=== PATIENT | male | born 1950 | race Caucasian/White ===

== ENCOUNTER 2019-04-18 13:29 | Outpatient (CLI) | payer OTHER ==
[~2019-04-18 13:29] MED LIST: ACET-2165 PO; CLOZ100T32 PO; DEPAK250 PO; DOCU250C14 PO; METO25TA6 PO; PRO40 PO; REM15 PO
== END 2019-04-18 21:05 | disposition home or self-care (01) ==
LOC: SLB 13:29
PROVIDERS: ATTEND Psychiatry & Neurology Psychiatry
DX: Z00.00 Encounter for general adult medical examination without abnormal findings (principal)
CPT/HCPCS: 36415; 80164-TC

== ENCOUNTER 2019-09-08 14:15 | Emergency (ER) | payer OTHER, MEDICAID ==
[~2019-09-08] VITALS: Ht 167.6 cm; Wt 72.6 kg
--- NOTE | 2019-09-08 14:24 | NUR ---
Patient to ER bed 1 to gown for evaluation. Side rails up.
[2019-09-08 14:25] VITALS: BP_SYST 144
--- NOTE | 2019-09-08 14:30 | NUR ---
PT CAME TO ER FOR MED CLEARANCE. HE IS TO BE SENT TO [facility]. PT AO2, NO DISCOMFORT AT THIS TIME, RESTING IN [facility].
--- NOTE | 2019-09-08 14:40 | NUR ---
ER at bedside examining patient.
[2019-09-08 15:19] LABS: BASOPHILS % (AUTO) 0.8 % (0.0-2.0); EOSINOPHILS # (AUTO) 0.1 K/uL (0.0-0.4); EOSINOPHILS % (AUTO) 2.2 % (0.0-4.0); HEMOGLOBIN 13.6 g/dL (14.0-18.0); LYMPHOCYTES # (AUTO) 1.9 K/uL (1.0-5.5); LYMPHOCYTES % (AUTO) 31.5 % (20.5-51.5); MEAN CORPUSCULAR HEMOGLOBIN 30 pg (27-31); MEAN CORPUSCULAR HGB CONC 33 % (32-36); MEAN CORPUSCULAR VOLUME 89 fL (79.0-98.0); MONOCYTES # (AUTO) 0.7 K/uL (0.0-1.0); NEUTROPHILS # (AUTO) 3.4 K/uL (1.8-7.7); NEUTROPHILS % (AUTO) 54.5 % (40.0-70.0); PLATELET COUNT (AUTO) 341 K/uL (130-430); RED CELL DISTRIBUTION WIDTH 15.1 % (9.0-15.0); WHITE BLOOD COUNT (AUTO) 6.1 K/uL (4.8-10.8)
[2019-09-08 15:40] LABS: ANION GAP 7 (5-15); CALCIUM 9.2 mg/dL (8.4-11.0); CHLORIDE 99 mmol/L (98-107); CREATININE 0.77 mg/dL (0.55-1.30); GLUCOSE 96 mg/dL (70-99); SODIUM SERUM 137 mmol/L (136-145); UREA NITROGEN, BLOOD 14 mg/dL (8-21)
[2019-09-08 15:41] LABS: ALANINE AMINOTRANSFERASE 18 U/L (12-78); ALBUMIN 3.6 g/dL (3.4-4.8); ASPARTATE AMINOTRANSFERASE 18 U/L (10-37); TOTAL BILIRUBIN 0.2 mg/dL (0.0-1.0)
--- NOTE | 2019-09-08 15:52 | NUR ---
PT RESTING IN GURNEY COMFORTABLY, NO S/S OF DISTRESS NOTED
[2019-09-08 15:56] LABS: ACETAMINOPHEN < 1 ug/mL (1-30); ALCOHOL, BLOOD < 3 mg/dL (<10); GFR AFRICAN AMERICAN 129 mL/min (>90)
[2019-09-08 16:10] LABS: BILIRUBIN,URINE NEGATIVE (NEGATIVE); BLOOD, URINE NEGATIVE (NEGATIVE); CLARITY/URINE CLEAR (CLEAR); COLOR,URINE YELLOW (YELLOW); GLUCOSE,URINE NEGATIVE (NEGATIVE); KETONES,URINE NEGATIVE (NEGATIVE); LEUKOCYTE ESTERASE ,URINE NEGATIVE (NEGATIVE); NITRITE, URINE NEGATIVE (NEGATIVE); PROTEIN URINE NEGATIVE (NEGATIVE); UROBILINOGEN,URINE 0.2 (0.2-1.0)
[2019-09-08 16:22] VITALS: BP_SYST 148
[2019-09-08 17:08] LABS: BARBITURATE, URINE NEGATIVE (NEG <=200); BENZODIAZEPINE, URINE NEGATIVE (NEG <=150); CANNABINOID, URINE NEGATIVE (NEG <=50); COCAINE, URINE NEGATIVE (NEG <=150); METHAMPHETAMINES SCREEN,URINE NEGATIVE (NEG <=500); OPIATE, URINE NEGATIVE (NEG <=100); PHENCYCLIDINE SCREEN,URINE NEGATIVE (NEG <=25); UR TRICYCLIC ANTIDEPRESSANTS POSITIVE (NEG <=300); URINE AMPHETAMINE NEGATIVE (NEG <=500); URINE METHADONE NEGATIVE (NEG <=200); URINE OXYCODONE SCREEN NEGATIVE (NEG <=100); URINE PROPOXYPHENE SCREEN NEGATIVE (NEG <=300)
--- NOTE | 2019-09-08 17:19 | NUR ---
PT HAS BEEN CALM AND COMPLIANT, NOT EXPERIENCING HALLUCINATIONS DURING HIS TIME HERE.
--- NOTE | 2019-09-08 18:16 | NUR ---
Patient to be transferred to [facility]. Is being transferred due to higher level of care. Receiving facility has accepting physician and available space. ER physician has signed transfer form. Patient or responsible alliance party has agreed to transfer and signed form. Patient belongings inventoried and will be sent with patient. Copy of nursing notes, lab reports, EKG, Physicians Orders and X-rays to be sent with patient. Report called to ELISA at receiving facility. Receiving physician is DR SLATER. [facility] ambulance service has been called for transfer. ETA is [id number].
[2019-09-09 09:13] LABS: CHOLESTEROL 217 mg/dL (<200); HDL CHOLESTEROL 57 mg/dL (>45); LDL CHOLESTEROL 123 mg/dL (<100); TRIGLYCERIDES 76 mg/dL (30-150)
== END 2019-09-08 18:16 ==
LOC: SED 14:15
DX: R44.3 Hallucinations, unspecified (principal); E11.29 Type 2 diabetes mellitus with other diabetic kidney complication; N28.9 Disorder of kidney and ureter, unspecified; I10 Essential (primary) hypertension; K21.9 Gastro-esophageal reflux disease without esophagitis; J44.9 Chronic obstructive pulmonary disease, unspecified; F32.9 Major depressive disorder, single episode, unspecified; Z88.8 Allergy status to other drugs, medicaments and biological substances; Z86.73 Personal history of transient ischemic attack (TIA), and cerebral infarction without residual deficits; Z79.899 Other long term (current) drug therapy
CPT/HCPCS: 36415; 71045; 80053; 80061; 80307; 81003; 83036; 84484; 85025; 99285; G0480; G0481; G0482

== ENCOUNTER 2019-10-22 21:24 | Emergency (ER) | payer OTHER, MEDICAID ==
[~2019-10-22] VITALS: Ht 152.4 cm; Wt 63.5 kg
[2019-10-22 21:29] VITALS: BP_SYST 142
[2019-10-22] MEDS ORDERED: NACL 0.9% 1,000 ML IV ONE (21:45)
[2019-10-22] MEDS ORDERED: ONDANSETRON 4 MG ODT TAB PO ONE (21:45)
[2019-10-22 22:11] LABS: HEMOGLOBIN 14.5 g/dL (14.0-18.0); MEAN CORPUSCULAR VOLUME 89 fL (79.0-98.0); NEUTROPHILS # (AUTO) 5.6 K/uL (1.8-7.7)
[2019-10-22 22:16] LABS: BASOPHILS % (AUTO) 0.4 % (0.0-2.0); EOSINOPHILS % (AUTO) 0.6 % (0.0-4.0); HEMATOCRIT 43.8 % (36-54); LYMPHOCYTES % (AUTO) 14.8 % (20.5-51.5); MEAN CORPUSCULAR HEMOGLOBIN 30 pg (27-31); MEAN CORPUSCULAR HGB CONC 33 % (32-36); MONOCYTES # (AUTO) 0.3 K/uL (0.0-1.0); MONOCYTES % (AUTO) 4.7 % (1.7-9.3); NEUTROPHILS % (AUTO) 79.5 % (40.0-70.0); PLATELET COUNT (AUTO) 237 K/uL (130-430); RED BLOOD CELL COUNT(AUTO) 4.93 MIL/uL (4.2-6.2); RED CELL DISTRIBUTION WIDTH 15.5 % (9.0-15.0)
[2019-10-22 22:27] LABS: CALCIUM 8.9 mg/dL (8.4-11.0); CREATININE 0.79 mg/dL (0.55-1.30); POTASSIUM 4.3 mmol/L (3.5-5.1)
[2019-10-22 22:31] LABS: ALBUMIN 3.9 g/dL (3.4-4.8); TOTAL BILIRUBIN 0.3 mg/dL (0.0-1.0)
[2019-10-22] MEDS ORDERED: ONDANSETRON HCL 4 MG/2 ML VIAL IVP ONE (22:45)
[2019-10-22] MEDS ORDERED: MAG-AL HYDROX/SIMETH 30 ML UDC PO ONE (23:30)
[2019-10-22] MEDS ORDERED: LIDOCAINE VISCOUS 2%, 15 ML UDC MM ONE (23:30)
[2019-10-22] MEDS ORDERED: DICYCLOMINE HCL 10 MG/5 ML SOLUTION PO ONE (23:30)
[2019-10-23 00:50] VITALS: BP_SYST 155
== END 2019-10-23 00:50 | disposition home or self-care (01) ==
LOC: SED 21:24
DX: R11.10 Vomiting, unspecified (principal); R42 Dizziness and giddiness; J44.9 Chronic obstructive pulmonary disease, unspecified; E11.9 Type 2 diabetes mellitus without complications; K21.9 Gastro-esophageal reflux disease without esophagitis; I10 Essential (primary) hypertension; Z88.8 Allergy status to other drugs, medicaments and biological substances; Z79.899 Other long term (current) drug therapy
CPT/HCPCS: 36415; 80053; 80164; 83690; 83880; 85025; 93005; 96361; 96374; 99284; J2001; J2405; J7030; Q0162

== ENCOUNTER 2023-10-13 12:35 | Inpatient (IN) | payer OTHER, MEDICAID ==
[2023-10-13] VITALS (8 sets, daily range): BP systolic 126–128; PULSE 101–118; RESP 18–22; TEMP 97.2–97.8; O2SAT 97–100
[~2023-10-13] VITALS: Ht 165.1 cm; Wt 63.0 kg
[~2023-10-13 12:35] MED LIST changes: -ACET-2165 PO; +ACET325T PO; +CLOZ100T13 PO; -CLOZ100T32 PO; +MIRT-147 PO; -REM15 PO
[2023-10-13 14:07] LABS: HEMATOCRIT 27.5 % (36-54); HEMOGLOBIN 8.7 g/dL (14.0-18.0); MEAN CORPUSCULAR HEMOGLOBIN 29 pg (27-31); MEAN CORPUSCULAR HGB CONC 32 % (32-36); MEAN CORPUSCULAR VOLUME 92 fL (79.0-98.0); PLATELET COUNT (AUTO) 530 K/uL (130-430); RED CELL DISTRIBUTION WIDTH 17.8 % (9.0-15.0)
[2023-10-13 14:38] LABS: BAND % (MANUAL) 16 % (0-6); BASOPHILS % (MANUAL) 0 % (0-2); EOSINOPHILS % (MANUAL) 0 % (0-7); LYMPHOCYTES % (MANUAL) 4 % (20-46); MONOCYTES % (MANUAL) 3 % (0-11)
[2023-10-13 14:40] LABS: ANISOCYTOSIS 1+; PLATELET ESTIMATE INCREASED (ADEQUATE)
[2023-10-13 14:41] LABS: TARGET CELLS FEW
[2023-10-13 14:45] LABS: INR 1.1 (0.80-1.20)
[2023-10-13 15:13] LABS: BILIRUBIN,URINE NEGATIVE (NEGATIVE); BLOOD, URINE NEGATIVE (NEGATIVE); CLARITY/URINE CLEAR (CLEAR); COLOR,URINE YELLOW (YELLOW); GLUCOSE,URINE NEGATIVE (NEGATIVE); KETONES,URINE NEGATIVE (NEGATIVE); LEUKOCYTE ESTERASE ,URINE NEGATIVE (NEGATIVE); NITRITE, URINE NEGATIVE (NEGATIVE); PROTEIN URINE NEGATIVE (NEGATIVE); UROBILINOGEN,URINE 0.2 (0.2-1.0)
[2023-10-13] MEDS ORDERED: PIPERACILLIN/TAZOBACTAM 3.375 GM/VIAL (ZOSYN) IV ONE ×2 (15:23)
[2023-10-13] MEDS: PIPERACILLIN/TAZO 3.375 GM in D5W 50 ML IV ONE (15:29)
[2023-10-13] MEDS: NS 1000 ML IV.SOLN IV ONE (15:32)
[2023-10-13 16:01] LABS: ANION GAP 7 (5-15); CALCIUM 8.4 mg/dL (8.4-11.0); CARBON DIOXIDE 31 mmol/L (23-29); CHLORIDE 112 mmol/L (98-107); CREATININE 1.13 mg/dL (0.55-1.30); GLUCOSE 122 mg/dL (74-106); POTASSIUM 5.1 mmol/L (3.5-5.1); SODIUM SERUM 150 mmol/L (136-145); UREA NITROGEN, BLOOD 61 mg/dL (8-21)
[2023-10-13] MEDS ORDERED: VANCOMYCIN HCL 1000 MG/VIAL IV ONE (16:05)
[2023-10-13 16:08] LABS: ALANINE AMINOTRANSFERASE 11 U/L (12-78); ALBUMIN 1.6 g/dL (3.4-4.8); ASPARTATE AMINOTRANSFERASE 14 U/L (10-37); BILIRUBIN,DIRECT 0.1 mg/dL (0.0-0.3); TOTAL BILIRUBIN 0.2 mg/dL (0.0-1.0); TOTAL PROTEIN, SERUM 6.6 g/dL (6.4-8.3)
[2023-10-13] MEDS ORDERED: QUET300T5 GT (17:14)
[2023-10-13] MEDS ORDERED: LACT10SO6 GT (17:14)
[2023-10-13] MEDS ORDERED: AMIN30LI2 GT (17:14)
[2023-10-13] MEDS ORDERED: PROP20TA7 GT (17:14)
[2023-10-13] MEDS ORDERED: SUCR1TAB GT (17:14)
[2023-10-13] MEDS ORDERED: FAMO40TA71 GT (17:14)
[2023-10-13] MEDS ORDERED: POTA20LI25 GT (17:14)
[2023-10-13] MEDS ORDERED: ESCI-6 GT (17:14)
[2023-10-13] MEDS ORDERED: HYDR-2924 GT (17:14)
[2023-10-13] MEDS ORDERED: MELA3TAB41 GT (17:14)
[2023-10-13] MEDS ORDERED: FURO40TA5 GT (17:14)
[2023-10-13] MEDS ORDERED: DOCU100T22 GT (17:14)
[2023-10-13] MEDS ORDERED: MIDO10TA GT (17:14)
[2023-10-13] MEDS ORDERED: HEPA500015 SUBQ (17:14)
[2023-10-13] MEDS ORDERED: ACET325C5 GT (17:14)
[2023-10-13] MEDS ORDERED: ONDA4TAB5 GT (17:14)
[2023-10-13] MEDS ORDERED: METO5TAB86 GT (17:14)
[2023-10-13] MEDS ORDERED: LACT1CAP14 GT (17:14)
[2023-10-13] MEDS ORDERED: ATOR40TA68 GT (17:14)
[2023-10-13] MEDS ORDERED: POLY17PO44 GT (17:14)
[2023-10-13] MEDS ORDERED: LACO200T4 GT (17:14)
[2023-10-13] MEDS ORDERED: VALP250S4 GT (17:14)
[2023-10-13] MEDS ORDERED: ACET325T39 GT (17:14)
[2023-10-13] MEDS ORDERED: MORL GT (17:14)
[2023-10-13] MEDS ORDERED: ASCO500C18 GT (17:14)
[2023-10-13] MEDS ORDERED: BISA10SU61 GT (17:14)
[2023-10-13] MEDS ORDERED: LANS30CA56 GT (17:14)
[2023-10-13] MEDS: VANCOMYCIN HCL 1,000 MG in D5W 250 ML IV ONE (19:18)
[2023-10-13] MEDS ORDERED: MORPHINE SULFATE 10 MG/5 ML ORAL SOL. UDC GT PRN (19:45)
[2023-10-13] MEDS ORDERED: BISACODYL 10 MG/SUPPOSITORY RC PRN (19:45)
[2023-10-13] MEDS ORDERED: hydrALAZINE HCL 10 MG TABLET GT PRN (19:45)
[2023-10-13] MEDS ORDERED: ACETAMINOPHEN 650 MG/20.3 ML UDC GT PRN (20:15)
[2023-10-13] MEDS: MELATONIN 3 MG TABLET GT SCH (21:00)
[2023-10-13] MEDS: VALPROIC ACID ORAL SYRUP 250 MG/5 ML UDC GT SCH (22:00)
[2023-10-13] MEDS: metroNIDAZOLE 500 mg/NS 100 ML IV SCH (22:47)
[2023-10-13] MEDS: LACTULOSE 20 GM/30 ML UDC GT SCH (22:48)
[2023-10-13] MEDS: PIPERACILLIN/TAZO 4.5 GM in D5W 100 ML IV SCH (22:48)
[2023-10-13] MEDS: DOCUSATE SODIUM 100 MG/10 ML UDC GT SCH (22:49)
[2023-10-13] MEDS: HEPARIN SODIUM,PORCINE 5,000 UNITS/ML VIAL SUBCUT SCH (22:52)
[2023-10-13] MEDS: ASCORBIC ACID 500 MG TABLET GT SCH (22:52)
[2023-10-13] MEDS: ATORVASTATIN 20 MG TABLET GT SCH (22:53)
[2023-10-13] MEDS: QUEtiapine FUMARATE 100 MG TABLET GT SCH (22:53)
[2023-10-13] MEDS: FUROSEMIDE 40 MG TABLET GT SCH (22:56)
[2023-10-13] MEDS: D5/0.45 NS 1,000 ML IV SCH (23:00)
[2023-10-13] MEDS: LACOSAMIDE 100 MG TABLET GT SCH (23:05)
[2023-10-14] VITALS (32 sets, daily range): BP systolic 95–146; PULSE 77–114; RESP 16–24; TEMP 96.5–98.3; O2SAT 92–100
[2023-10-14 05:15] LABS: BASOPHILS % (AUTO) 0.2 % (0.0-2.0); EOSINOPHILS % (AUTO) 0.1 % (0.0-4.0); HEMATOCRIT 22.7 % (36-54); HEMOGLOBIN 7.3 g/dL (14.0-18.0); LYMPHOCYTES # (AUTO) 1.7 K/uL (1.0-5.5); MEAN CORPUSCULAR HEMOGLOBIN 29 pg (27-31); MEAN CORPUSCULAR HGB CONC 32 % (32-36); MEAN CORPUSCULAR VOLUME 91 fL (79.0-98.0); MONOCYTES # (AUTO) 1.7 K/uL (0.0-1.0); NEUTROPHILS # (AUTO) 24.8 K/uL (1.8-7.7); NEUTROPHILS % (AUTO) 87.7 % (40.0-70.0); PLATELET COUNT (AUTO) 464 K/uL (130-430); RED BLOOD CELL COUNT(AUTO) 2.48 MIL/uL (4.2-6.2); RED CELL DISTRIBUTION WIDTH 17.4 % (9.0-15.0); WHITE BLOOD COUNT (AUTO) 28.3 K/uL (4.8-10.8)
[2023-10-14 05:54] LABS: ALANINE AMINOTRANSFERASE 12 U/L (12-78); ALBUMIN 1.4 g/dL (3.4-4.8); ANION GAP 6 (5-15); ASPARTATE AMINOTRANSFERASE 13 U/L (10-37); CALCIUM 7.8 mg/dL (8.4-11.0); CARBON DIOXIDE 28 mmol/L (23-29); CHLORIDE 118 mmol/L (98-107); CREATININE 1.17 mg/dL (0.55-1.30); GLUCOSE 134 mg/dL (74-106); POTASSIUM 4.9 mmol/L (3.5-5.1); SODIUM SERUM 152 mmol/L (136-145); TOTAL BILIRUBIN 0.3 mg/dL (0.0-1.0); TOTAL PROTEIN, SERUM 5.4 g/dL (6.4-8.3); UREA NITROGEN, BLOOD 48 mg/dL (8-21)
[2023-10-14] MEDS: VANCOMYCIN HCL 1.25 GM/NS 250 ML IV SCH (06:00)
[2023-10-14] MEDS: METOCLOPRAMIDE HCL 10 MG TABLET PO SCH (06:54)
[2023-10-14 07:55] LABS: VALPROIC ACID < 3 ug/mL (50-100)
[2023-10-14] MEDS ORDERED: ESCITALOPRAM OXALATE 10 MG TABLET GT SCH (09:00)
[2023-10-14] MEDS ORDERED: NON-FORMULARY MEDICATION (Amino Acids/Protein Hydrolys (Pro-Stat Liquid) 30 ML) GT SCH (09:00)
[2023-10-14] MEDS ORDERED: POTASSIUM CHLORIDE 20 MEQ/PKT PACKET GT SCH (09:00)
[2023-10-14] MEDS: D5W 1,000 ML IV SCH (09:15)
[2023-10-14] MEDS: POLYETHYLENE GLYCOL 3350, 17 GM/ POWD.PACK GT SCH (09:29)
[2023-10-14] MEDS: PROPRANOLOL HCL 10 MG TABLET (INDERAL) GT SCH (09:30)
[2023-10-14] MEDS: FAMOTIDINE 20 MG TABLET GT SCH (09:31)
[2023-10-14] MEDS: LANSOPRAZOLE 30 MG CAPSULE.DR GT SCH (09:32)
[2023-10-14] MEDS: MIDODRINE HCL 5 MG TABLET (PROAMATINE) GT SCH (09:33)
[2023-10-14] MEDS: LACTOBACILLUS RHAMNOSUS GG 1 CAP CAPSULE GT SCH (09:33)
[2023-10-14] MEDS: LORazepam 2 MG/ML VIAL IM ONE (09:55)
[2023-10-14] MEDS: SUCRALFATE 1 GM/10 ML UDC GT SCH (12:29)
[2023-10-14] MEDS: CITALOPRAM HYDROBROMIDE 20 MG TABLET GT SCH (12:39)
[2023-10-14] MEDS: levalbuterol HCL 0.63 MG/3 ML VIAL.NEB INH SCH (23:24)
[2023-10-15] VITALS (44 sets, daily range): BP systolic 76–160; PULSE 66–112; RESP 12–34; TEMP 96.3–98.6; O2SAT 92–100
[2023-10-15 06:54] LABS: ALANINE AMINOTRANSFERASE 12 U/L (12-78); ALBUMIN 1.4 g/dL (3.4-4.8); ANION GAP 10 (5-15); ASPARTATE AMINOTRANSFERASE 14 U/L (10-37); CARBON DIOXIDE 27 mmol/L (23-29); CHLORIDE 118 mmol/L (98-107); CREATININE 1.04 mg/dL (0.55-1.30); GLUCOSE 123 mg/dL (74-106); POTASSIUM 4.1 mmol/L (3.5-5.1); SODIUM SERUM 155 mmol/L (136-145); TOTAL BILIRUBIN 0.2 mg/dL (0.0-1.0); TOTAL PROTEIN, SERUM 5.5 g/dL (6.4-8.3); UREA NITROGEN, BLOOD 34 mg/dL (8-21)
[2023-10-15 06:58] LABS: TOTAL IRON BIND. CAPACITY 145 ug/dL (250-450)
[2023-10-15 07:38] LABS: BASOPHILS # (AUTO) 0.1 K/uL (0.0-0.2); BASOPHILS % (AUTO) 0.2 % (0.0-2.0); EOSINOPHILS # (AUTO) 0.1 K/uL (0.0-0.4); EOSINOPHILS % (AUTO) 0.3 % (0.0-4.0); HEMATOCRIT 22.6 % (36-54); LYMPHOCYTES % (AUTO) 8.9 % (20.5-51.5); MEAN CORPUSCULAR HEMOGLOBIN 29 pg (27-31); MEAN CORPUSCULAR HGB CONC 31 % (32-36); MEAN CORPUSCULAR VOLUME 93 fL (79.0-98.0); MONOCYTES # (AUTO) 1.2 K/uL (0.0-1.0); MONOCYTES % (AUTO) 5.3 % (1.7-9.3); NEUTROPHILS # (AUTO) 19.3 K/uL (1.8-7.7); PLATELET COUNT (AUTO) 441 K/uL (130-430); RED BLOOD CELL COUNT(AUTO) 2.43 MIL/uL (4.2-6.2); RED CELL DISTRIBUTION WIDTH 17.5 % (9.0-15.0); WHITE BLOOD COUNT (AUTO) 22.6 K/uL (4.8-10.8)
[2023-10-15 07:48] LABS: HEMOGLOBIN 6.9 g/dL (14.0-18.0)
[2023-10-15 07:49] LABS: NEUTROPHILS % (AUTO) 85.3 % (40.0-70.0)
[2023-10-15 07:50] LABS: RETICULOCYTE COUNT 1.7 % (0.5-1.5)
[2023-10-15] MEDS: ONDANSETRON 4 MG ODT TAB GT PRN (09:42)
[2023-10-15] MEDS: ACETAMINOPHEN 650 MG/20.3 ML UDC GT PRN (09:49)
[2023-10-15] MEDS: NACL 0.9% 1,000 ML IV ONE (11:17)
[2023-10-15] MEDS ORDERED: NOREPINEPHR 4 MG/250 mL NS 250 ML IV PRN (15:15)
[2023-10-15] MEDS: NOREPINEPHRINE BITARTRATE 4 MG in D5W 246 ML IV PRN (17:24)
[2023-10-15] MEDS: 0.45% NACL 1,000 ML IV SCH (18:52)
[2023-10-16] VITALS (82 sets, daily range): BP systolic 73–155; PULSE 52–93; RESP 12–35; TEMP 96.9–97.5; O2SAT 25–100
[2023-10-16 04:44] LABS: BASOPHILS % (AUTO) 0.2 % (0.0-2.0); EOSINOPHILS # (AUTO) 0.1 K/uL (0.0-0.4); EOSINOPHILS % (AUTO) 0.4 % (0.0-4.0); HEMATOCRIT 25.1 % (36-54); HEMOGLOBIN 8.2 g/dL (14.0-18.0); LYMPHOCYTES # (AUTO) 2.3 K/uL (1.0-5.5); LYMPHOCYTES % (AUTO) 12.5 % (20.5-51.5); MEAN CORPUSCULAR HEMOGLOBIN 29 pg (27-31); MEAN CORPUSCULAR HGB CONC 33 % (32-36); MEAN CORPUSCULAR VOLUME 90 fL (79.0-98.0); MONOCYTES % (AUTO) 5.1 % (1.7-9.3); NEUTROPHILS # (AUTO) 15.3 K/uL (1.8-7.7); NEUTROPHILS % (AUTO) 81.8 % (40.0-70.0); PLATELET COUNT (AUTO) 472 K/uL (130-430); WHITE BLOOD COUNT (AUTO) 18.7 K/uL (4.8-10.8)
[2023-10-16 05:39] LABS: ALANINE AMINOTRANSFERASE 11 U/L (12-78); ALBUMIN 1.3 g/dL (3.4-4.8); ANION GAP 8 (5-15); ASPARTATE AMINOTRANSFERASE 14 U/L (10-37); CALCIUM 7.6 mg/dL (8.4-11.0); CARBON DIOXIDE 27 mmol/L (23-29); CHLORIDE 115 mmol/L (98-107); CREATININE 0.79 mg/dL (0.55-1.30); GLUCOSE 132 mg/dL (74-106); POTASSIUM 3.8 mmol/L (3.5-5.1); SODIUM SERUM 150 mmol/L (136-145); TOTAL BILIRUBIN 0.4 mg/dL (0.0-1.0); TOTAL PROTEIN, SERUM 5.4 g/dL (6.4-8.3); UREA NITROGEN, BLOOD 18 mg/dL (8-21)
[2023-10-16] MEDS: ALBUMIN HUMAN 25% 50 ML IV SCH (18:49)
[2023-10-17] VITALS (52 sets, daily range): BP systolic 71–153; PULSE 46–115; RESP 9–37; TEMP 96.8–98.5; O2SAT 95–100
[2023-10-17 05:32] LABS: BASOPHILS % (AUTO) 0.3 % (0.0-2.0); EOSINOPHILS # (AUTO) 0.1 K/uL (0.0-0.4); EOSINOPHILS % (AUTO) 0.9 % (0.0-4.0); HEMATOCRIT 23.9 % (36-54); HEMOGLOBIN 7.9 g/dL (14.0-18.0); LYMPHOCYTES # (AUTO) 2.5 K/uL (1.0-5.5); LYMPHOCYTES % (AUTO) 17.6 % (20.5-51.5); MEAN CORPUSCULAR HEMOGLOBIN 29 pg (27-31); MEAN CORPUSCULAR HGB CONC 33 % (32-36); MEAN CORPUSCULAR VOLUME 88 fL (79.0-98.0); MONOCYTES # (AUTO) 1.1 K/uL (0.0-1.0); MONOCYTES % (AUTO) 7.4 % (1.7-9.3); NEUTROPHILS # (AUTO) 10.6 K/uL (1.8-7.7); NEUTROPHILS % (AUTO) 73.8 % (40.0-70.0); PLATELET COUNT (AUTO) 367 K/uL (130-430); RED BLOOD CELL COUNT(AUTO) 2.72 MIL/uL (4.2-6.2); RED CELL DISTRIBUTION WIDTH 17.7 % (9.0-15.0); WHITE BLOOD COUNT (AUTO) 14.4 K/uL (4.8-10.8)
[2023-10-17 06:14] LABS: ALBUMIN 1.7 g/dL (3.4-4.8); ANION GAP 6 (5-15); ASPARTATE AMINOTRANSFERASE 11 U/L (10-37); CALCIUM 7.8 mg/dL (8.4-11.0); CARBON DIOXIDE 26 mmol/L (23-29); CHLORIDE 107 mmol/L (98-107); CREATININE 0.61 mg/dL (0.55-1.30); GLUCOSE 103 mg/dL (74-106); POTASSIUM 3.7 mmol/L (3.5-5.1); SODIUM SERUM 139 mmol/L (136-145); TOTAL BILIRUBIN 0.4 mg/dL (0.0-1.0); TOTAL PROTEIN, SERUM 5.3 g/dL (6.4-8.3); UREA NITROGEN, BLOOD 8 mg/dL (8-21)
[2023-10-17] MEDS: NOREPINEPHRINE 4 MG/4 ML VIAL IV ONE (06:37)
[2023-10-17 07:17] LABS: ALANINE AMINOTRANSFERASE 7 U/L (12-78)
[2023-10-17] MEDS: CEFIDEROCOL SULFATE TOSYLATE 1 GM in NS 100 ML IV SCH (14:12)
[2023-10-17] MEDS: HEPARIN SODIUM,PORCINE 5,000 UNITS/ML VIAL SUBCUT SCH (21:45)
[2023-10-18] VITALS (48 sets, daily range): BP systolic 94–135; PULSE 72–124; RESP 10–32; TEMP 97–98.5; O2SAT 87–100
[2023-10-18 05:48] LABS: BASOPHILS % (AUTO) 0.4 % (0.0-2.0); EOSINOPHILS # (AUTO) 0.1 K/uL (0.0-0.4); EOSINOPHILS % (AUTO) 1.3 % (0.0-4.0); HEMATOCRIT 22.5 % (36-54); HEMOGLOBIN 7.5 g/dL (14.0-18.0); LYMPHOCYTES # (AUTO) 2.1 K/uL (1.0-5.5); LYMPHOCYTES % (AUTO) 22.5 % (20.5-51.5); MEAN CORPUSCULAR HEMOGLOBIN 29 pg (27-31); MEAN CORPUSCULAR HGB CONC 34 % (32-36); MEAN CORPUSCULAR VOLUME 87 fL (79.0-98.0); MONOCYTES # (AUTO) 0.9 K/uL (0.0-1.0); MONOCYTES % (AUTO) 9.8 % (1.7-9.3); NEUTROPHILS # (AUTO) 6.3 K/uL (1.8-7.7); PLATELET COUNT (AUTO) 362 K/uL (130-430); RED BLOOD CELL COUNT(AUTO) 2.57 MIL/uL (4.2-6.2); RED CELL DISTRIBUTION WIDTH 17.5 % (9.0-15.0)
[2023-10-18 06:38] LABS: TOTAL IRON BIND. CAPACITY 122 ug/dL (250-450)
[2023-10-18 06:46] LABS: ANION GAP 5 (5-15); CALCIUM 7.6 mg/dL (8.4-11.0); CARBON DIOXIDE 29 mmol/L (23-29); CHLORIDE 106 mmol/L (98-107); CREATININE 0.41 mg/dL (0.55-1.30); GLUCOSE 95 mg/dL (74-106); POTASSIUM 3.1 mmol/L (3.5-5.1); SODIUM SERUM 140 mmol/L (136-145); UREA NITROGEN, BLOOD 3 mg/dL (8-21)
[2023-10-18 07:18] LABS: WHITE BLOOD COUNT (AUTO) 9.5 K/uL (4.8-10.8)
[2023-10-18] MEDS: NOREPINEPHR 4 MG/250 mL NS 250 ML IV PRN (10:56)
[2023-10-19] VITALS (52 sets, daily range): BP systolic 63–162; PULSE 74–113; RESP 14–38; TEMP 97.2–98.7; O2SAT 95–100
[2023-10-19 04:47] LABS: EOSINOPHILS # (AUTO) 0.1 K/uL (0.0-0.4); HEMOGLOBIN 7.3 g/dL (14.0-18.0); LYMPHOCYTES # (AUTO) 1.6 K/uL (1.0-5.5); MEAN CORPUSCULAR HEMOGLOBIN 30 pg (27-31); MEAN CORPUSCULAR HGB CONC 34 % (32-36); MONOCYTES # (AUTO) 0.6 K/uL (0.0-1.0); NEUTROPHILS # (AUTO) 3.9 K/uL (1.8-7.7)
[2023-10-19 04:54] LABS: BASOPHILS % (AUTO) 0.5 % (0.0-2.0); EOSINOPHILS % (AUTO) 1.9 % (0.0-4.0); LYMPHOCYTES % (AUTO) 25.4 % (20.5-51.5); MEAN CORPUSCULAR VOLUME 88 fL (79.0-98.0); MONOCYTES % (AUTO) 9.4 % (1.7-9.3); NEUTROPHILS % (AUTO) 62.8 % (40.0-70.0); PLATELET COUNT (AUTO) 366 K/uL (130-430); RED BLOOD CELL COUNT(AUTO) 2.45 MIL/uL (4.2-6.2); RED CELL DISTRIBUTION WIDTH 17.4 % (9.0-15.0); WHITE BLOOD COUNT (AUTO) 6.1 K/uL (4.8-10.8)
[2023-10-19 05:06] LABS: ALANINE AMINOTRANSFERASE 7 U/L (12-78); ALBUMIN 1.4 g/dL (3.4-4.8); ANION GAP 6 (5-15); ASPARTATE AMINOTRANSFERASE 18 U/L (10-37); CALCIUM 7.6 mg/dL (8.4-11.0); CARBON DIOXIDE 29 mmol/L (23-29); CHLORIDE 109 mmol/L (98-107); CREATININE 0.42 mg/dL (0.55-1.30); GLUCOSE 95 mg/dL (74-106); POTASSIUM 3.8 mmol/L (3.5-5.1); SODIUM SERUM 144 mmol/L (136-145); TOTAL BILIRUBIN 0.2 mg/dL (0.0-1.0); TOTAL PROTEIN, SERUM 4.9 g/dL (6.4-8.3); UREA NITROGEN, BLOOD 3 mg/dL (8-21)
[2023-10-19 05:08] LABS: HEMATOCRIT 21.7 % (36-54)
[2023-10-19] MEDS: SOD FERRIC GLUC COMPLEX/SUC 125 MG in NS 100 ML IV SCH (18:55)
[2023-10-20] VITALS (44 sets, daily range): BP systolic 88–155; PULSE 78–119; RESP 15–32; TEMP 97.6–98.5; O2SAT 98–100
[2023-10-20 05:27] LABS: BASOPHILS % (AUTO) 0.4 % (0.0-2.0); EOSINOPHILS # (AUTO) 0.1 K/uL (0.0-0.4); EOSINOPHILS % (AUTO) 2.1 % (0.0-4.0); HEMOGLOBIN 7.2 g/dL (14.0-18.0); LYMPHOCYTES # (AUTO) 1.8 K/uL (1.0-5.5); LYMPHOCYTES % (AUTO) 26.1 % (20.5-51.5); MEAN CORPUSCULAR HEMOGLOBIN 30 pg (27-31); MEAN CORPUSCULAR HGB CONC 34 % (32-36); MEAN CORPUSCULAR VOLUME 90 fL (79.0-98.0); MONOCYTES # (AUTO) 0.7 K/uL (0.0-1.0); MONOCYTES % (AUTO) 9.6 % (1.7-9.3); NEUTROPHILS # (AUTO) 4.2 K/uL (1.8-7.7); NEUTROPHILS % (AUTO) 61.8 % (40.0-70.0); PLATELET COUNT (AUTO) 346 K/uL (130-430); RED CELL DISTRIBUTION WIDTH 17.4 % (9.0-15.0); WHITE BLOOD COUNT (AUTO) 6.8 K/uL (4.8-10.8)
[2023-10-20 05:55] LABS: HEMATOCRIT 21.5 % (36-54)
[2023-10-20 05:56] LABS: ALANINE AMINOTRANSFERASE 4 U/L (12-78); ALBUMIN 1.4 g/dL (3.4-4.8); ANION GAP 6 (5-15); ASPARTATE AMINOTRANSFERASE 17 U/L (10-37); CALCIUM 7.9 mg/dL (8.4-11.0); CARBON DIOXIDE 29 mmol/L (23-29); CHLORIDE 109 mmol/L (98-107); CREATININE 0.37 mg/dL (0.55-1.30); GLUCOSE 95 mg/dL (74-106); POTASSIUM 3.6 mmol/L (3.5-5.1); SODIUM SERUM 144 mmol/L (136-145); TOTAL BILIRUBIN 0.2 mg/dL (0.0-1.0); TOTAL PROTEIN, SERUM 4.9 g/dL (6.4-8.3); UREA NITROGEN, BLOOD 2 mg/dL (8-21)
[2023-10-21] VITALS (32 sets, daily range): BP systolic 91–140; PULSE 92–125; RESP 16–30; TEMP 97.4–99.3; O2SAT 95–100
[2023-10-21 05:38] LABS: BASOPHILS % (AUTO) 0.5 % (0.0-2.0); EOSINOPHILS # (AUTO) 0.1 K/uL (0.0-0.4); EOSINOPHILS % (AUTO) 1.9 % (0.0-4.0); LYMPHOCYTES # (AUTO) 1.5 K/uL (1.0-5.5); LYMPHOCYTES % (AUTO) 27.7 % (20.5-51.5); MEAN CORPUSCULAR HEMOGLOBIN 30 pg (27-31); MEAN CORPUSCULAR HGB CONC 34 % (32-36); MEAN CORPUSCULAR VOLUME 89 fL (79.0-98.0); MONOCYTES # (AUTO) 0.5 K/uL (0.0-1.0); MONOCYTES % (AUTO) 9.4 % (1.7-9.3); NEUTROPHILS # (AUTO) 3.3 K/uL (1.8-7.7); NEUTROPHILS % (AUTO) 60.5 % (40.0-70.0); PLATELET COUNT (AUTO) 315 K/uL (130-430); RED CELL DISTRIBUTION WIDTH 17.1 % (9.0-15.0); WHITE BLOOD COUNT (AUTO) 5.5 K/uL (4.8-10.8)
[2023-10-21 06:24] LABS: HEMATOCRIT 20.5 % (36-54); HEMOGLOBIN 6.9 g/dL (14.0-18.0)
[2023-10-21 08:22] LABS: ANION GAP 1 (5-15); CARBON DIOXIDE 31 mmol/L (23-29); CHLORIDE 109 mmol/L (98-107); GLUCOSE 101 mg/dL (74-106); POTASSIUM 3.7 mmol/L (3.5-5.1); SODIUM SERUM 141 mmol/L (136-145)
[2023-10-21 08:23] LABS: CALCIUM 7.6 mg/dL (8.4-11.0)
[2023-10-21 09:16] LABS: UREA NITROGEN, BLOOD 3 mg/dL (8-21)
[2023-10-21 09:17] LABS: CREATININE 0.31 mg/dL (0.55-1.30)
[2023-10-21 22:45] LABS: HEMATOCRIT 24.8 % (36-54); HEMOGLOBIN 8.4 g/dL (14.0-18.0)
[2023-10-22] VITALS (10 sets, daily range): BP systolic 103–146; PULSE 89–97; RESP 16–18; TEMP 96.8–98.1; O2SAT 96–100
[2023-10-22 06:57] LABS: BASOPHILS # (AUTO) 0.1 K/uL (0.0-0.2); BASOPHILS % (AUTO) 1.1 % (0.0-2.0); EOSINOPHILS # (AUTO) 0.1 K/uL (0.0-0.4); EOSINOPHILS % (AUTO) 1.7 % (0.0-4.0); HEMATOCRIT 25.7 % (36-54); HEMOGLOBIN 8.7 g/dL (14.0-18.0); LYMPHOCYTES # (AUTO) 1.4 K/uL (1.0-5.5); LYMPHOCYTES % (AUTO) 27.4 % (20.5-51.5); MEAN CORPUSCULAR HEMOGLOBIN 30 pg (27-31); MEAN CORPUSCULAR HGB CONC 34 % (32-36); MEAN CORPUSCULAR VOLUME 88 fL (79.0-98.0); MONOCYTES # (AUTO) 0.5 K/uL (0.0-1.0); MONOCYTES % (AUTO) 9.4 % (1.7-9.3); NEUTROPHILS # (AUTO) 3.1 K/uL (1.8-7.7); NEUTROPHILS % (AUTO) 60.4 % (40.0-70.0); PLATELET COUNT (AUTO) 301 K/uL (130-430); RED BLOOD CELL COUNT(AUTO) 2.92 MIL/uL (4.2-6.2); RED CELL DISTRIBUTION WIDTH 16.1 % (9.0-15.0); WHITE BLOOD COUNT (AUTO) 5.2 K/uL (4.8-10.8)
[2023-10-23] VITALS (10 sets, daily range): BP systolic 126–147; PULSE 76–99; RESP 16–20; TEMP 96.8–98.7; O2SAT 96–100
[2023-10-23 11:11] LABS: BASOPHILS % (AUTO) 0.8 % (0.0-2.0); EOSINOPHILS # (AUTO) 0.1 K/uL (0.0-0.4); EOSINOPHILS % (AUTO) 2.1 % (0.0-4.0); HEMATOCRIT 24.9 % (36-54); HEMOGLOBIN 8.5 g/dL (14.0-18.0); LYMPHOCYTES # (AUTO) 1.3 K/uL (1.0-5.5); LYMPHOCYTES % (AUTO) 29.6 % (20.5-51.5); MEAN CORPUSCULAR HEMOGLOBIN 30 pg (27-31); MEAN CORPUSCULAR HGB CONC 34 % (32-36); MEAN CORPUSCULAR VOLUME 88 fL (79.0-98.0); MONOCYTES # (AUTO) 0.5 K/uL (0.0-1.0); MONOCYTES % (AUTO) 10.7 % (1.7-9.3); NEUTROPHILS # (AUTO) 2.5 K/uL (1.8-7.7); NEUTROPHILS % (AUTO) 56.8 % (40.0-70.0); PLATELET COUNT (AUTO) 294 K/uL (130-430); RED BLOOD CELL COUNT(AUTO) 2.82 MIL/uL (4.2-6.2); RED CELL DISTRIBUTION WIDTH 16.5 % (9.0-15.0); WHITE BLOOD COUNT (AUTO) 4.5 K/uL (4.8-10.8)
[2023-10-24] VITALS (9 sets, daily range): BP systolic 116–146; PULSE 80–98; RESP 16–20; TEMP 96.5–97.9; O2SAT 2–100
[2023-10-24 06:57] LABS: BASOPHILS % (AUTO) 0.7 % (0.0-2.0); EOSINOPHILS # (AUTO) 0.1 K/uL (0.0-0.4); EOSINOPHILS % (AUTO) 1.9 % (0.0-4.0); HEMATOCRIT 25.2 % (36-54); HEMOGLOBIN 8.5 g/dL (14.0-18.0); LYMPHOCYTES # (AUTO) 1.6 K/uL (1.0-5.5); LYMPHOCYTES % (AUTO) 30.9 % (20.5-51.5); MEAN CORPUSCULAR HEMOGLOBIN 30 pg (27-31); MEAN CORPUSCULAR HGB CONC 34 % (32-36); MEAN CORPUSCULAR VOLUME 88 fL (79.0-98.0); MONOCYTES # (AUTO) 0.6 K/uL (0.0-1.0); MONOCYTES % (AUTO) 12.1 % (1.7-9.3); NEUTROPHILS # (AUTO) 2.7 K/uL (1.8-7.7); NEUTROPHILS % (AUTO) 54.4 % (40.0-70.0); PLATELET COUNT (AUTO) 293 K/uL (130-430); RED BLOOD CELL COUNT(AUTO) 2.85 MIL/uL (4.2-6.2); RED CELL DISTRIBUTION WIDTH 16.5 % (9.0-15.0)
[2023-10-25] VITALS (11 sets, daily range): BP systolic 104–149; PULSE 69–106; RESP 15–20; TEMP 97.6–97.9; O2SAT 2–100
[2023-10-26] VITALS (9 sets, daily range): BP systolic 144–147; PULSE 90–97; RESP 16–20; TEMP 97.2–99; O2SAT 95–100
[2023-10-26 08:02] LABS: BASOPHILS % (AUTO) 0.5 % (0.0-2.0); EOSINOPHILS # (AUTO) 0.1 K/uL (0.0-0.4); EOSINOPHILS % (AUTO) 1.2 % (0.0-4.0); HEMATOCRIT 27.1 % (36-54); HEMOGLOBIN 9.1 g/dL (14.0-18.0); LYMPHOCYTES # (AUTO) 1.6 K/uL (1.0-5.5); MEAN CORPUSCULAR HEMOGLOBIN 30 pg (27-31); MEAN CORPUSCULAR HGB CONC 34 % (32-36); MEAN CORPUSCULAR VOLUME 89 fL (79.0-98.0); MONOCYTES # (AUTO) 0.7 K/uL (0.0-1.0); MONOCYTES % (AUTO) 12.5 % (1.7-9.3); NEUTROPHILS # (AUTO) 3.2 K/uL (1.8-7.7); NEUTROPHILS % (AUTO) 56.8 % (40.0-70.0); PLATELET COUNT (AUTO) 270 K/uL (130-430); RED BLOOD CELL COUNT(AUTO) 3.03 MIL/uL (4.2-6.2); RED CELL DISTRIBUTION WIDTH 17.1 % (9.0-15.0); WHITE BLOOD COUNT (AUTO) 5.7 K/uL (4.8-10.8)
[2023-10-27] VITALS (7 sets, daily range): BP systolic 136–155; PULSE 82–98; RESP 16–18; TEMP 97.4–98.9; O2SAT 96–99
== END 2023-10-27 20:45 | DRG 871 ==
LOC: SED 12:35 → STU 16:26 → SIC 10-15 10:35 → STU 10-21 13:36
PROVIDERS: ADMIT Family Medicine; ATTEND Family Medicine
PROC: 30233N1 Transfusion of Nonautologous Red Blood Cells into Peripheral Vein, Percutaneous Approach (ICD-10-PCS; principal; 2023-10-15)
PROC: 05HY33Z Insertion of Infusion Device into Upper Vein, Percutaneous Approach (ICD-10-PCS; 2023-10-15)
DX: A41.9 Sepsis, unspecified organism (principal); J18.9 Pneumonia, unspecified organism; R65.21 Severe sepsis with septic shock; E87.0 Hyperosmolality and hypernatremia; J96.10 Chronic respiratory failure, unspecified whether with hypoxia or hypercapnia; N17.9 Acute kidney failure, unspecified; N39.0 Urinary tract infection, site not specified; J44.0 Chronic obstructive pulmonary disease with (acute) lower respiratory infection; E86.0 Dehydration; E88.09 Other disorders of plasma-protein metabolism, not elsewhere classified; D64.9 Anemia, unspecified; K21.9 Gastro-esophageal reflux disease without esophagitis; F32.A Depression, unspecified; F03.90 Unspecified dementia, unspecified severity, without behavioral disturbance, psychotic disturbance, mood disturbance, and anxiety; G40.909 Epilepsy, unspecified, not intractable, without status epilepticus; I10 Essential (primary) hypertension; Z93.0 Tracheostomy status; Z79.899 Other long term (current) drug therapy; Z88.8 Allergy status to other drugs, medicaments and biological substances; F29 Unspecified psychosis not due to a substance or known physiological condition
CPT/HCPCS: 36415; 71045; 76700; 80048; 80053; 80076; 80164; 81001; 81003; 82272; 82948; 83051; 83540; 83550; 83605; 84443; 84484; 85007; 85014; 85025; 85027; 85044; 85610; 85730; 86870; 86886; 86900; 86901; 86920; 87040; 87070; 87081; 87086; 87186; 87205; 92610-GN; 93005; 94640; 94760; 99291; G0378; J0699; J1644; J2060; J2543; J2916; J3370; J3490; J7060; J7614; J8597; P9021; P9046; Q0162